=== PATIENT | male | born 1930 | race Caucasian/White ===

== ENCOUNTER 2017-07-19 12:22 | Emergency (ER) | payer OTHER, MEDICARE ==
[~2017-07-19] VITALS: Ht 170.2 cm; Wt 106.6 kg
[2017-07-19 12:31] VITALS: Ht 170.2 cm; Wt 106.6 kg
[2017-07-19 15:24] VITALS: BP 131/70
== END 2017-07-19 16:45 | disposition home or self-care (01) ==
LOC: ED 12:22
DX: S92.414A Nondisplaced fracture of proximal phalanx of right great toe, initial encounter for closed fracture (principal); J44.9 Chronic obstructive pulmonary disease, unspecified; E11.9 Type 2 diabetes mellitus without complications; I48.91 Unspecified atrial fibrillation; Z86.79 Personal history of other diseases of the circulatory system; W22.8XXA Striking against or struck by other objects, initial encounter; Y93.E1 Activity, personal bathing and showering; Y99.8 Other external cause status; Y92.89 Other specified places as the place of occurrence of the external cause
CPT/HCPCS: Q0092

== ENCOUNTER 2017-08-31 23:29 | Emergency (ER) | payer OTHER, MEDICARE ==
[~2017-08-31] VITALS: Ht 170.2 cm; Wt 100.7 kg
[2017-08-31 23:34] VITALS: Ht 170.2 cm; Wt 100.7 kg
[2017-09-01 06:04] VITALS: BP 149/92
== END 2017-09-01 06:05 | disposition home or self-care (01) ==
LOC: ED 23:29
DX: M47.22 Other spondylosis with radiculopathy, cervical region (principal); I11.0 Hypertensive heart disease with heart failure; I50.9 Heart failure, unspecified; E11.9 Type 2 diabetes mellitus without complications; I48.91 Unspecified atrial fibrillation; J44.9 Chronic obstructive pulmonary disease, unspecified; Z88.2 Allergy status to sulfonamides; Z88.8 Allergy status to other drugs, medicaments and biological substances; Z91.041 Radiographic dye allergy status
CPT/HCPCS: J3010

== ENCOUNTER 2018-06-23 10:44 | Emergency (ER) | payer OTHER, MEDICARE ==
[~2018-06-23] VITALS: Ht 170.2 cm; Wt 99.8 kg
[2018-06-23 10:51] VITALS: Ht 170.2 cm; Wt 99.8 kg
[2018-06-23 11:30] LABS: BASOPHIL % 0.2 % (0-2); PLATELET COUNT 262 x10^3mcL (130-400)
[2018-06-23 11:32] LABS: RED CELL DISTRIBUTION WIDTH 19.2 % (11.5-14.5)
[2018-06-23 11:38] LABS: CALCIUM 9.3 mg/dL (8.5-10.1); CARBON DIOXIDE 36.4 mmol/L (21-32); CHLORIDE SERUM 104 mmol/L (98-107); CREATININE SERUM 1.5 mg/dL (0.7-1.3); GLUCOSE SERUM 170 mg/dL (74-106); POTASSIUM SERUM 4.1 mmol/L (3.5-5.1); SODIUM SERUM 144 mmol/L (136-145)
[2018-06-23 11:43] LABS: ALKALINE PHOSPHATASE 85 U/L (46-116); ALT/SGPT 22 U/L (16-63); AST/SGOT 15 U/L (15-37); BILIRUBIN TOTAL 0.29 mg/dL (0.20-1.00); HDL CHOLESTEROL 39 mg/dL (40-60); TOTAL PROTEIN, SERUM 6.4 g/dL (6.4-8.2)
[2018-06-23 11:50] LABS: ALBUMIN 2.7 g/dL (3.4-5.0); CHOLESTEROL 204 mg/dL (<200)
[2018-06-23 12:54] LABS: microscopic required? NO
[2018-06-23 13:04] LABS: UA SPECIFIC GRAVITY 1.025 (1.005-1.035); urine erythrocyte NEGATIVE (NEGATIVE)
[2018-06-23 15:56] VITALS: BP 151/51
== END 2018-06-23 15:56 | disposition home or self-care (01) ==
LOC: ED 10:44
PROVIDERS: Emergency Medicine
DX: R53.1 Weakness (principal); E86.0 Dehydration; I11.0 Hypertensive heart disease with heart failure; I50.9 Heart failure, unspecified; E11.9 Type 2 diabetes mellitus without complications; I48.91 Unspecified atrial fibrillation; E78.00 Pure hypercholesterolemia, unspecified; J44.9 Chronic obstructive pulmonary disease, unspecified; Z88.2 Allergy status to sulfonamides; Z88.6 Allergy status to analgesic agent; Z88.8 Allergy status to other drugs, medicaments and biological substances; Z91.048 Other nonmedicinal substance allergy status
CPT/HCPCS: J7030